=== PATIENT | female | born 1960 | race Caucasian/White ===

== ENCOUNTER 2016-04-28 18:24 | Emergency (ER) | payer BC ==
[~2016-04-28] VITALS: Ht 157.5 cm; Wt 59.0 kg
[2016-04-28 18:25] VITALS: BP 185/99; PULSE 93; RESP 18; TEMP 97.9; O2SAT 98
[2016-04-28] MEDS ORDERED: ASPIRIN 81 MG TAB.CHEW PO ONE (18:45)
[2016-04-28 18:50] LABS: BASOPHILS # (AUTO) 0.1 K/uL (0.0-0.2); BASOPHILS % (AUTO) 0.8 % (0.0-2.0); EOSINOPHILS # (AUTO) 0.6 K/uL (0.0-0.4); EOSINOPHILS % (AUTO) 6.8 % (0.0-4.0); HEMATOCRIT 40.9 % (36-48); HEMOGLOBIN 13.9 g/dL (12.0-16.0); LYMPHOCYTES # (AUTO) 2.6 K/uL (1.0-5.5); LYMPHOCYTES % (AUTO) 30.7 % (20.5-51.5); MEAN CORPUSCULAR HEMOGLOBIN 30 pg (27-31); MEAN CORPUSCULAR HGB CONC 34 % (32-36); MEAN CORPUSCULAR VOLUME 88 fL (79.0-98.0); MONOCYTES # (AUTO) 0.7 K/uL (0.0-1.0); NEUTROPHILS # (AUTO) 4.4 K/uL (1.8-7.7); NEUTROPHILS % (AUTO) 53.7 % (40.0-70.0); PLATELET COUNT (AUTO) 275 K/uL (130-430); RED BLOOD CELL COUNT(AUTO) 4.68 MIL/uL (4.2-6.2); RED CELL DISTRIBUTION WIDTH 13.7 % (9.0-15.0); WHITE BLOOD COUNT (AUTO) 8.4 K/uL (4.8-10.8)
[2016-04-28 19:03] LABS: CALCIUM 9.3 mg/dL (8.4-11.0); CREATININE 1.16 mg/dL (0.55-1.30); POTASSIUM 3.3 mmol/L (3.5-5.1)
[2016-04-28 19:08] LABS: ALBUMIN 4.1 g/dL (3.4-4.8); TOTAL BILIRUBIN 0.6 mg/dL (0.0-1.0); TOTAL PROTEIN, SERUM 8.5 g/dL (6.4-8.3)
[2016-04-28 19:22] VITALS: BP 165/82; PULSE 87; RESP 18; TEMP 97.9; O2SAT 98
== END 2016-04-28 19:22 | disposition home or self-care (01) ==
LOC: SED 18:24
DX: R07.9 Chest pain, unspecified (principal); I10 Essential (primary) hypertension; Z88.8 Allergy status to other drugs, medicaments and biological substances
CPT/HCPCS: 36415; 71010; 80053; 83880; 84484; 85025; 93005; 99285

== ENCOUNTER 2017-06-08 17:23 | Outpatient (CLI) | payer BC | END 2017-06-08 21:28 | disposition home or self-care (01) | LOC: SRD 17:23 | PROVIDERS: ATTEND Internal Medicine | DX: M19.012 Primary osteoarthritis, left shoulder (principal) | CPT/HCPCS: 73030 ==

== ENCOUNTER 2018-02-04 17:10 | Outpatient (CLI) | payer BC | END 2018-02-04 21:08 | disposition home or self-care (01) | LOC: SRD 17:10 | PROVIDERS: ATTEND Internal Medicine | DX: R22.1 Localized swelling, mass and lump, neck (principal) | CPT/HCPCS: 70360-TC ==

== ENCOUNTER 2018-03-07 13:20 | Outpatient (CLI) | payer BC | END 2018-03-07 19:06 | disposition home or self-care (01) | LOC: SRD 13:20 | PROVIDERS: ATTEND Internal Medicine | DX: Z01.818 Encounter for other preprocedural examination (principal); R05 Cough | CPT/HCPCS: 71046-TC ==